=== PATIENT | female | born 1950 | race Caucasian/White ===

== ENCOUNTER → 2016-06-21 | Outpatient (CLI) | payer BC ==
[~2016-06-21] MED LIST: FLONASE ALLER15.8 ML NOSE; SUDAFED30 MG PO; TYLENOL ARTHRI650 MG PO
== END | disposition disaster alternative care site (69) ==
LOC: GBCOE 05-30 10:30 → GRAD 05-30 11:00 → GBCOE 06-20 10:00 → GRAD 06-20 10:30 → GBCOE 13:24
DX: N63 Unspecified lump in breast (principal); N60.02 Solitary cyst of left breast
CPT/HCPCS: G0206; G0279